=== PATIENT | male | born 1980 | race African-American/Black ===

== ENCOUNTER 2018-06-28 18:32 | Emergency (ER) | payer OTHER ==
[2018-06-28 18:37] VITALS: BP 151/90; PULSE 61; TEMP 98.5; BMI 27.3
[2018-06-28] MEDS ORDERED: CYCLOBENZAPRINE HCL 10 MG TABLET (FP) PO ONE (18:38)
[2018-06-28] MEDS ORDERED: IBUPROFEN 600 MG TABLET (FP) PO ONE ×2 (18:38→19:31)
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
[2018-06-28] MEDS ORDERED: CYCLOBENZAPRINE HCL 10 MG TABLET (FP) ONE (19:31)
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
== END 2018-06-28 20:24 | disposition home or self-care (01) ==
LOC: JERFT 18:32
DX: S16.1XXA Strain of muscle, fascia and tendon at neck level, initial encounter (principal); S39.012A Strain of muscle, fascia and tendon of lower back, initial encounter; V43.52XA Car driver injured in collision with other type car in traffic accident, initial encounter; Y93.89 Activity, other specified; Y92.410 Unspecified street and highway as the place of occurrence of the external cause; F17.210 Nicotine dependence, cigarettes, uncomplicated
CPT/HCPCS: 73130-TC-RT-FY; 99281-25